=== PATIENT | male | born 1985 | race African-American/Black ===

== ENCOUNTER 2018-12-17 08:32 | Emergency (ER) | payer OTHER, SELFPAY ==
[2018-12-17] MEDS ORDERED: Acetaminophen 500 MG TAB ONE (08:51)
[2018-12-17] MEDS ORDERED: Ketorolac Tromethamine 60 MG/2 ML VIAL ONE (08:51)
--- NOTE | 2018-12-17 10:45 | RAD ---
LEFT KNEE 4 VIEWS: Date: 12/17/18 HISTORY: Knee pain after jogging. COMPARISON: 07/11/16 study. FINDINGS: No signs of fracture or joint effusion. There is no significant arthritic change. No change since the prior study. IMPRESSION: Essentially unremarkable left knee. POS: [facility]
== END 2018-12-17 10:16 | disposition home or self-care (01) ==
LOC: ERS 08:32
DX: S83.92XA Sprain of unspecified site of left knee, initial encounter (principal); X58.XXXA Exposure to other specified factors, initial encounter
CPT/HCPCS: 96372; J1885

== ENCOUNTER 2020-12-09 21:28 | Emergency (ER) | payer SELFPAY ==
[2020-12-09] MEDS ORDERED: HYDROcodone/Acetaminophen 5/325 mg Tablet ONE (23:47)
== END 2020-12-10 00:28 | disposition home or self-care (01) ==
LOC: ERS 21:28
DX: S86.011A Strain of right Achilles tendon, initial encounter (principal); W21.05XA Struck by basketball, initial encounter; Y93.67 Activity, basketball